=== PATIENT | female | born 1990 | race Caucasian/White ===

== ENCOUNTER 2017-12-19 17:57 | Emergency (ER) | payer MEDICARE, MEDICAID ==
[2017-12-19 18:39] VITALS: RESP 18; O2SAT 99
--- NOTE | 2017-12-19 18:50 | ED PDOC ---
Arrival/HPI - General Time Seen by Provider: 12/19/17 18:45 Historian: Patient - History of Present Illness Narrative History of Present Illness (Text): 12/19/17 18:47 27 year old female, no significant pmh, nkda, complaining of nausea/vomiting and diarrhea started this morning. Pt. stated that she woke up this morning with nausea and vomiting, couple episodes of watery diarrhea, no abdominal pain , no night sweat, no palpitation, no fever or chills, no change in vision, no other medical or psychological complaints. Past Medical History - Provider Review Nursing Documentation Reviewed: Yes - Psychiatric Hx Depression: No Hx Emotional Abuse: No Hx Physical Abuse: No Hx Substance Use: No - Suicidal Assessment Feels Threatened In Home Enviroment: No Family/Social History - Physician Review Nursing Documentation Reviewed: Yes Family/Social History: Unknown Family HX Hx Alcohol Use: No Hx Substance Use: No Hx Substance Use Treatment: No Allergies/Home Meds Allergies/Adverse Reactions: Allergies aspirin Allergy (Verified 12/19/17 18:49) RASH Review of Systems - Review of Systems Constitutional: absent: Fatigue, Fevers Eyes: absent: Vision Changes Respiratory: absent: SOB, Cough Cardiovascular: absent: Chest Pain Gastrointestinal: Abdominal Pain, Diarrhea, Nausea, Vomiting. absent: Constipation Skin: absent: Rash, Pruritis Neurological: absent: Headache, Dizziness Psychiatric: absent: Anxiety, Depression, Suicidal Ideation Physical Exam Vital Signs Reviewed: Yes Vital Signs Temp Pulse Resp BP Pulse Ox 12/19/17 20:54 99.8 F H 99 H 18 128/74 99 12/19/17 18:38 98.2 F 84 18 128/68 99 Temperature: Afebrile Blood Pressure: Normal Pulse: Regular Respiratory Rate: Normal Appearance: Positive for: Well-Appearing, Non-Toxic, Comfortable Pain Distress: None Mental Status: Positive for: Alert and Oriented X 3 - Systems Exam Head: Present: Atraumatic, Normocephalic Pupils: Present: PERRL Extroacular Muscles: Present: EOMI Conjunctiva: Present: Normal Mouth: Present: Moist Mucous Membranes Neck: Present: Normal Range of Motion Respiratory/Chest: Present: Clear to Auscultation, Good Air Exchange. No: Respiratory Distress, Accessory Muscle Use Cardiovascular: Present: Regular Rate and Rhythm, Normal S1, S2. No: Murmurs Abdomen: Present: Tenderness (mid abdomen tenderness). No: Distention, Peritoneal Signs, Rebound, Guarding Back: Present: Normal Inspection Upper Extremity: Present: Normal Inspection. No: Cyanosis, Edema Lower Extremity: Present: Normal Inspection. No: Edema Neurological: Present: GCS=15, CN II-XII Intact, Speech Normal, Motor Func Grossly Intact, Gait Normal, Memory Normal Skin: Present: Warm, Dry, Normal Color. No: Rashes Psychiatric: Present: Alert, Oriented x 3, Normal Insight, Normal Concentration Medical Decision Making ED Course and Treatment: 12/19/17 18:50 -labs/ua -IVF/pepcid/reglan -Observe and reassess 12/19/17 21:45 -Urine hcg is negative -Labs are non-significant -Urinalysis show no UTI -Stool culture and C.diff ordered. -Pt. is febrile in the Emergency room, tachy, CT abdomen and pelvis ordered. 12/19/17 21:55 -Pt. refused CT abdomen and pelvis and IV fluid, wants to sign out against medical advise. Leaving Against Medical Advice (AMA): -You sign out against medical advice. You are giving tylenol and pepcid/zofran , stay hydrated, bed rest, BRAT diet, follow up with your own pmd and GI within 2 days, return to the Emergency room for any new or worsening signs or symptoms. - Lab Interpretations Lab Results: 12/19/17 20:11 12/19/17 20:11 Lab Results 12/19/17 20:11: WBC 8.1, RBC 3.78, Hgb 12.8, Hct 38.0, MCV 100.5, MCH 33.9, MCHC 33.7, RDW 12.7, Plt Count 291, MPV 10.6, Gran % 82.6 H, Lymph % (Auto) 12.2 L, Butler % (Auto) 4.7, Eos % (Auto) 0.4 L, Baso % (Auto) 0.1, Gran # 6.65 H , Lymph # (Auto) 1.0 L, Butler # (Auto) 0.4, Eos # (Auto) 0.0, Baso # (Auto) 0.01 12/19/17 20:11: Sodium 143, Potassium 3.9, Chloride 107, Carbon Dioxide 22, Anion Gap 19, BUN 12, Creatinine 0.8, Est GFR ( Amer) > 60, Est GFR (Non- Af Amer) > 60, Random Glucose 92, Calcium 9.5, Total Bilirubin 0.8, AST 46 H, ALT 29, Alkaline Phosphatase 59, Total Protein 8.8 H, Albumin 4.7, Globulin 4.1 , Albumin/Globulin Ratio 1.1, Lipase 47 12/19/17 20:11: Urine Color Yellow, Urine Appearance Clear, Urine pH 6.0, Ur Specific Gilby >= 1.030, Urine Protein Trace H, Urine Glucose (UA) Negative, Urine Ketones Negative, Urine Blood Negative, Urine Nitrate Negative, Urine Bilirubin Negative, Urine Urobilinogen 0.2, Ur Leukocyte Esterase Negative, Urine RBC Negative, Urine WBC 1 - 3, Ur Epithelial Cells 1 - 3, Urine Bacteria Few - RAD Interpretation Radiology Orders: 12/19/17 21:45 ABDOMEN & PELVIS [ABD & PELVIS IV CONTRAST ONLY] [CT] Stat - Medication Orders Current Medication Orders: Discontinued Medications Acetaminophen (Tylenol 325mg Tab) 650 mg PO STAT STA Stop: 12/19/17 21:47 Famotidine (Pepcid) 20 mg IVP STAT STA Stop: 12/19/17 19:05 Last Admin: 12/19/17 21:35 Dose: 20 mg IVP Administration Document 12/19/17 21:35 (Rec: 12/19/17 21:35 [id number]) Charges for Administration # of IVP Administrations 1 Sodium Chloride (Sodium Chloride 0.9%) 1,000 mls @ 999 mls/hr IV .Q1H1M STA Stop: 12/19/17 20:04 Last Admin: 12/19/17 21:35 Dose: 999 mls/hr eMAR Start Stop Document 12/19/17 21:35 (Rec: 12/19/17 21:35 [id number]) Intravenous Solution Start Date 12/19/17 Start Time 21:35 Metoclopramide HCl (Reglan) 10 mg IVP STAT STA Stop: 12/19/17 19:05 Last Admin: 12/19/17 21:34 Dose: 10 mg IVP Administration Document 12/19/17 21:34 (Rec: 12/19/17 21:35 [id number]) Charges for Administration # of IVP Administrations 1 - PA / PHYSICIAN ASSISTANT / Resident Statement / has reviewed & agrees with the documentation as recorded. Disposition/Present on Arrival - Present on Arrival Any Indicators Present on Arrival: No History of DVT/PE: No History of Uncontrolled Diabetes: No Urinary Catheter: No History of Decub. Ulcer: No - Disposition Have Diagnosis and Disposition been Completed?: Yes Diagnosis: Abdominal pain, Nausea vomiting and diarrhea Disposition: AGAINST MEDICAL ADVICE Disposition Time: 19:06 Patient Problems: Current Active Problems Problem Status Onset Abdominal pain Acute Nausea vomiting and diarrhea Acute Condition: GOOD Additional Instructions: -You sign out against medical advice. You are giving tylenol and pepcid/zofran , stay hydrated, bed rest, BRAT diet, follow up with your own pmd and GI within 2 days, return to the Emergency room for any new or worsening signs or symptoms. Prescriptions: Acetaminophen [Tylenol 325mg tab] 2 tab PO QID PRN #30 tab PRN Reason: Other Famotidine [Pepcid] 20 mg PO DAILY #30 tab Ondansetron [Zofran] 4 mg PO Q8H PRN #10 tab PRN Reason: Nausea/Vomiting Referrals: Aydee Pérez MD [Primary Care Provider] - Follow up with primary Priyank Kerr MD [Staff Provider] - Follow up with primary Alix Infante DO [Doctor Osteopathy] - Follow up with primary Dandre Willis MD [Staff Provider] - Follow up with primary Forms: WORK NOTE
[2017-12-19 18:55] VITALS: BMI 29.2
[2017-12-19] MEDS ORDERED: Sodium Chloride 0.9% 1,000 ML IV STA (19:04)
[2017-12-19 20:37] LABS: BASO # 0.01 K/mm3 (0.0-2.0); BASO % 0.1 % (0.0-3.0); EOS % 0.4 % (1.5-5.0); GRAN # 6.65 (1.4-6.5); GRAN % 82.6 % (50.0-68.0); HEMOGLOBIN 12.8 g/dL (12.0-16.0); LYMPH % 12.2 % (22.0-35.0); MEAN CELL VOLUME 100.5 fl (80.0-105.0); MEAN CORPUSCULAR HEMOGLOBIN 33.9 pg (25.0-35.0); MEAN CORPUSCULAR HGB CONC 33.7 g/dl (31.0-37.0); MEAN PLATELET VOLUME 10.6 fl (7.0-11.0); MONO # 0.4 (0.1-0.6); MONO % 4.7 % (1.0-6.0); RBC 3.78 10^6/uL (3.5-6.1); RED CELL DISTRIBUTION WIDTH 12.7 % (11.5-14.5); WHITE BLOOD COUNT 8.1 10^3/ul (4.5-11.0)
[2017-12-19 20:39] LABS: ALB/GLOB RATIO 1.1 (1.1-1.8); ALBUMIN 4.7 g/dL (3.0-4.8); ALT/SGPT 29 U/L (7-56); AST/SGOT 46 U/L (14-36); BLOOD UREA NITROGEN 12 mg/dL (7-21); CALCIUM 9.5 mg/dL (8.4-10.5); GFR AFRICAN-AMERICAN > 60; GFR NON-AFRICAN AMERICAN > 60; LIPASE 47 U/L (23-300)
[2017-12-19 20:44] LABS: URINE BILIRUBIN NEGATIVE (NEGATIVE); URINE BLOOD NEGATIVE (NEGATIVE); URINE GLUCOSE (UA) NEGATIVE (NEGATIVE); URINE LEUKOCYTE ESTERASE NEGATIVE Leu/uL (NEGATIVE); URINE PROTEIN TRACE mg/dL (<30 mg/dL); URINE UROBILINOGEN 0.2 E.U./dL (<1 E.U./dL)
[2017-12-19 20:45] LABS: URINE APPEARANCE CLEAR (CLEAR); URINE COLOR YELLOW (YELLOW)
[2017-12-19 21:01] LABS: URINE BACTERIA FEW (NEG); URINE RBC NEGATIVE /hpf (0-2)
[2017-12-19] MEDS ORDERED: Iohexol 350 MG/100 ML VIAL ONE (21:52)
[2017-12-20] VITALS: BP 128/76; PULSE 107; TEMP 98.9
== END 2017-12-19 22:25 | disposition left against medical advice (07) ==
LOC: ED 17:57
DX: R19.7 Diarrhea, unspecified (principal); R11.2 Nausea with vomiting, unspecified; R10.9 Unspecified abdominal pain
CPT/HCPCS: 80053; 81001; 83690; 85025; 96374; 96375; 99282; J2765; J7040